=== PATIENT | male | born 1940 | race Caucasian/White ===

== ENCOUNTER → 2023-09-18 07:46 | Outpatient (REF) | payer MEDICARE, SELFPAY | LOC: WOUND 07:46 | PROVIDERS: ATTENDING PHYSICIAN Surgery | DX: L97.522 Non-pressure chronic ulcer of other part of left foot with fat layer exposed (principal); S91.112A Laceration without foreign body of left great toe without damage to nail, initial encounter; X58.XXXA Exposure to other specified factors, initial encounter; E11.8 Type 2 diabetes mellitus with unspecified complications; E11.42 Type 2 diabetes mellitus with diabetic polyneuropathy | CPT/HCPCS: 99203 ==